=== PATIENT | male | born 1995 | race Caucasian/White ===

== ENCOUNTER 2018-01-25 04:45 | Inpatient (IN) ==
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
[2018-01-25 06:33] LABS: Baso # (Auto) 0.1 th/mm3 (0.0-0.2); Baso % (Auto) 0.8 % (0.0-2.0); Eos # (Auto) 0.3 th/mm3 (0.0-0.4); Eos % (Auto) 3.8 % (0.0-4.0); Hematocrit 43.5 % (39.0-51.0); Hemoglobin 15.8 gm/dL (13.0-17.0); Lymph # (Auto) 1.9 th/mm3 (1.0-4.8); Lymph % (Auto) 21.6 % (9.0-44.0); Mean Corpuscular Volume 85.2 fL (80.0-100.0); Mean Platelet Volume 6.8 fL (7.0-11.0); Mono # (Auto) 0.9 th/mm3 (0.0-0.9); Mono % (Auto) 10.4 % (0.0-8.0); Neut # (Auto) 5.6 th/mm3 (1.8-7.7); Neut % (Auto) 63.4 % (16.0-70.0); Platelet Count 354 th/mm3 (150-450); Red Blood Count 5.11 mil/mm3 (4.50-5.90); Red Cell Distribution Width 12.4 % (11.6-17.2); White Blood Count 8.9 th/mm3 (4.0-11.0)
[2018-01-25 06:35] LABS: Mean Corpuscular HGB Conc 36.4 % (32.0-36.0)
[2018-01-25 06:59] LABS: Alanine Aminotransferase 15 U/L (9-52); Albumin 4.6 g/dL (3.4-5.0); Anion Gap 15 meq/L (5-15); Aspartate Aminotransferase 7 U/L (15-39); Blood Urea Nitrogen 30 mg/dL (7-18); Calcium 9.3 mg/dL (8.5-10.1); Carbon Dioxide 23.5 meq/L (21.0-32.0); Chloride 105 meq/L (98-107); Glomerular Filtration Rate 71 mL/min (>89); Glucose,Random 96 mg/dL (74-106); Potassium 3.3 meq/L (3.5-5.1); Sodium 143 meq/L (136-145)
[2018-01-25 07:10] LABS: Alkaline Phosphatase 84 U/L (45-117); Total Protein 8.1 g/dL (6.4-8.2)
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
[2018-01-25] MEDS ORDERED: Aluminum/Magnesium/Simethacone Susp 30 ML UDC PO PRN (14:15)
[2018-01-25 16:09] LABS: Amphetamine Screen,Urine Pos (Neg); Barbiturate Screen,Urine Neg (Neg); Cannabinoid Screen,Urine Pos (Neg); Cocaine Screen,Urine Neg (Neg)
[2018-01-25 16:11] LABS: Opiate Screen,Urine Neg (Neg)
[2018-01-25] MEDS: Senna/Docusate Sodium 8.6/50 MG Tablet PO SCH (21:11)
[2018-01-26] MEDS: Senna/Docusate Sodium 8.6/50 MG Tablet PO SCH ×2 (08:33→21:01)
[2018-01-26 08:45] LABS: Potassium 4.2 meq/L (3.5-5.1)
[2018-01-26 08:50] LABS: Chol/HDL Ratio 4.19 Ratio; HDL Cholesterol 33.6 mg/dL (40.0-60.0)
--- NOTE | 2018-01-26 09:50 | P.TTN ---
- Patient Problems Problems: 1. Discharge planning 2. Medication compliance 3. Knowledge deficit 4. Lack of coping skills - Progress Toward Goals Provider Present: Dr. Gil Esquivel Provider Input: new today will be seen for HandP Nurse(s) Present: Manda: he is a BA for wandering in streets and responding to internal Nurse Input: responded to internally stimulated. he is unsure about substances but somewhat admitted to using something. he is paranoid , he tried Risperdal in past and did not like Psychiatric Counselors Present: Emely Gracia LCSW Psychiatric Therapist Input: in BA states he shared he has been DX with Schizophrenia, he will be seen for a bio assessment today Group Spec/RT/OT/RANGEL Input: new to groups today - Documentation Teaching Recipient: Patient
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
[2018-01-26] MEDS: Acetaminophen 325 MG Tablet PO PRN (11:52)
--- NOTE | 2018-01-26 15:33 | P.DIET ---
Nutritional Evaluation Type of nutrition evaluation: initial Nutrition screening: Weight Loss > 10 lbs (He states this is from being homeless ) Objective - Diagnosis Schizophrenia - Objective % IBW: 75 (TVP=982#) Body Weight Used for Calculations: IBW (67.3kg) Energy Needs - Lower Range (kCal/kg): 30 Energy Needs - Upper Range (kCal/kg): 35 Lower Limit kCal/kg (kCals): 2,019 Upper Limit kCal/kg (kCals): 2,356 Lower Limit Protein Factor (Grams per Kg): 1.1 Upper Limit Protein Factor (Grams per Kg): 1.4 Lower Protein Needs (Protein): 74 Upper Protein Needs (Protein): 94 Dietitian Reviewed in Medical Record: Current diet, Curent medications, Intake & Output, Labs, Medical history Diet Order: Regular Oral Diet Intake Amount: Excellent 90%+ Assessment Assessment: Pt admitted to inpatient psych for schizophrenia. Pt is at 75% of his IBW, current BMI is 17.3. States he has been homeless for a few weeks and this is why he's been losing weight. He is on a Regular diet, which is appropriate. I will add Enlive TID for increased calories for hopefully wt gain. He is eating well currently, but will benefit from the oral nutritional supplements for wt/ muscle gain. Dietitian following along. Recommendations: 1. Enlive TID. 2. Continue Regular diet. Dietitian to Monitor: Lab values, Supplement acceptance, Intake & Output, Diet tolerance, Weight change, PO Intake, Medical course
[2018-01-26 16:01] LABS: Hemoglobin A1c 5.3 % (4.3-6.0)
[2018-01-27] MEDS: Senna/Docusate Sodium 8.6/50 MG Tablet PO SCH ×2 (08:35→21:55)
--- NOTE | 2018-01-27 16:22 | P.PNPSY ---
Subjective Remarks: Patient seen for follow up, chart reviewed. Discussion nursing staff reported patient mostly in bed, only out for meals, showered, mother reported wanting patient to go to rehab. Patient was found lying on hospital bed, superficially cooperative, states feeling "tired", reports having a headache, sleeping well, eating and drinking well, reports having some nausea but denying any vomiting or diarrhea nor any abdominal pain. Patient states that his auditory hallucinations are "worse", refused to elaborate. Review of Systems All other systems reviewed negative except as stated in HPI Mental Status Examination Appearance: Disheveled Consciousness: Somnolent (Slightly) Motor Activity: Other (No observed abnormal movements or motor activity) Speech: Slow, Other (Elevated at times) Language: Adequate Fund of Knowledge: Poor Attention and Concentration: Inadequate Memory: Impaired Mood: Irritable Affect: Irritable Thought Process & Associations: Linear, Other ([place]) Thought Content: Hallucinations (Command auditory hallucinations to hurt other people) Hallucination Type: Auditory Delusion Type: Paranoid Suicidal Ideation: No Suicidal Plan: No Suicidal Intention: No Homicidal Ideation: No Homicidal Plan: No Homicidal Intention: No Insight: Poor Judgment: Poor Assessment and Plan - Assessment (1) Unspecified psychosis Code(s): F29 - Unspecified psychosis not due to a substance or known physiological condition Status: Acute - Plan Plan: Patient at this time noted with continued irritability, seclusive, improved hygiene, continues with auditory hallucinations. Increase olanzapine to 5mg a.m. /10mg HS for psychosis. Continue to monitor mood and behavior. Discharge planning in progress. Justification for Continued Inpatient Stay: At risk for further decompensation at lower level of care.
[2018-01-27] MEDS: Acetaminophen 325 MG Tablet PO PRN (16:52)
[2018-01-27] MEDS: OLANZapine 10 MG ODT Tablet PO SCH (21:55)
[2018-01-28] MEDS: Senna/Docusate Sodium 8.6/50 MG Tablet PO SCH ×2 (09:16→21:43)
[2018-01-28] MEDS ORDERED: OLANZapine 10 MG ODT Tablet PO SCH (16:32)
--- NOTE | 2018-01-28 16:46 | P.PNPSY ---
Subjective Remarks: Patient seen for follow up, chart reviewed. Discussion nursing staff reported patient seclusive, no behavioral issues, continues with suicidal ideation and auditory hallucinations. Patient found lying hospital bed noted to be superficially cooperative and irritable at times stating he is feeling "okay" states that he is feeling "tired" feeling okay, reports sleeping well, states he attended some groups yesterday, reports having less suicidal ideations and decreasing auditory hallucinations with a clear to be present. Patient had to be prompted to engage in interview as he was mostly laying down with poor eye contact. When discussing discharge planning upon stabilization patient was not able to engage in adequate participation in this. Review of Systems All other systems reviewed negative except as stated in HPI Mental Status Examination Appearance: Disheveled Consciousness: Somnolent (Slightly) Motor Activity: Other (No observed abnormal movements or motor activity) Speech: Slow, Other (Elevated at times) Language: Adequate Fund of Knowledge: Poor Attention and Concentration: Inadequate Memory: Impaired Mood: Irritable Affect: Irritable Thought Process & Associations: Linear, Other ([place]) Thought Content: Hallucinations (Command auditory hallucinations to hurt other people) Hallucination Type: Auditory Delusion Type: Paranoid Suicidal Ideation: No Suicidal Plan: No Suicidal Intention: No Homicidal Ideation: No Homicidal Plan: No Homicidal Intention: No Insight: Poor Judgment: Poor Assessment and Plan - Assessment (1) Unspecified psychosis Code(s): F29 - Unspecified psychosis not due to a substance or known physiological condition Status: Acute - Plan Plan: Patient is noted to have improved hygiene and he is in showering, attending some groups and out for meals continues to have poor motivation, endorse continued suicidal ideation which she states are decreasing along with auditory hallucinations as well. We will continue to titrate olanzapine to 10 mg p.o. for psychosis and mood stabilization. We will continue to monitor mood and behavior. Discharge planning in progress. Justification for Continued Inpatient Stay: At risk of further decompensation a lower level care.
[2018-01-28] MEDS: Acetaminophen 325 MG Tablet PO PRN (18:22)
[2018-01-28] MEDS: OLANZapine 10 MG ODT Tablet PO SCH (21:44)
[2018-01-29] MEDS: OLANZapine 10 MG ODT Tablet PO SCH ×2 (09:07→21:08)
[2018-01-29] MEDS: Senna/Docusate Sodium 8.6/50 MG Tablet PO SCH ×2 (09:07→21:08)
--- NOTE | 2018-01-29 16:27 | P.PNPSY ---
Subjective Remarks: Patient seen for follow, chart reviewed. Discussion nursing staff reported patient continues to very poor eye contact with staff, has a compliant medications, stating wanting to go to [place] upon discharge. Patient was found lying hospital bed asleep was woken up several times to participate in interview. Patient state he is feeling tired states that he has difficulty with sleep. He reports adequate appetite has been out for meals and states having attended some groups. Patient denies any perceptional services at this time denying suicide ideation. Discussion about patient being transferred to a sober living facility in [place] as arranged by mother was reviewed which he agreed. Review of Systems All other systems reviewed negative except as stated in HPI Mental Status Examination Appearance: Disheveled Consciousness: Somnolent Motor Activity: Other (No observed abnormal movements or motor activity) Speech: Slow Language: Adequate Fund of Knowledge: Poor Attention and Concentration: Inadequate Memory: Impaired Mood: Irritable Affect: Blunt Thought Process & Associations: Linear, Other ([place]) Thought Content: Preoccupations (with discharge place) Hallucination Type: None Delusion Type: Paranoid Suicidal Ideation: No Suicidal Plan: No Suicidal Intention: No Homicidal Ideation: No Homicidal Plan: No Homicidal Intention: No Insight: Poor Judgment: Poor Assessment and Plan - Assessment (1) Unspecified psychosis Code(s): F29 - Unspecified psychosis not due to a substance or known physiological condition Status: Acute - Plan Plan: Patient this time continues with poor motivation, requiring prompting by staff, marginal hygiene although reports attending some groups. Patient denying any perceptional disturbances or suicide ideations at this time. Patient to continue current treatment. We will continue to monitor mood and behavior. Patient likely discharge Thursday to sober living facility patient continues to improve over the weekend. Discharge planning a progress. Justification for Continued Inpatient Stay: At risk of further decompensation a lower level care.
[2018-01-30] MEDS: Senna/Docusate Sodium 8.6/50 MG Tablet PO SCH ×2 (09:51→20:05)
[2018-01-30] MEDS: OLANZapine 10 MG ODT Tablet PO SCH ×2 (09:51→20:05)
--- NOTE | 2018-01-30 15:24 | P.PNPSY ---
Subjective Remarks: Reviewed electronic medical records and discussed case with staff. Follow-up was conducted in the patient's room with ACOSTA Alas present. Patient found sleeping in bed. Wakes to verbal stimuli. States that he is tired although he has been sleeping well. He attributes this to his medication. States his appetite's been good. Denies any other side effects. Denies any perceptual disturbances. Mental Status Examination Appearance: Disheveled Consciousness: Somnolent Motor Activity: Other (No observed abnormal movements or motor activity) Speech: Slow Language: Adequate Fund of Knowledge: Poor Attention and Concentration: Inadequate Memory: Impaired Mood: Irritable Affect: Blunt Thought Process & Associations: Linear, Other ([place]) Thought Content: Preoccupations (with discharge place) Hallucination Type: None Delusion Type: Paranoid Suicidal Ideation: No Suicidal Plan: No Suicidal Intention: No Homicidal Ideation: No Homicidal Plan: No Homicidal Intention: No Insight: Poor Judgment: Poor Assessment and Plan - Assessment (1) Schizophrenia Code(s): F20.9 - Schizophrenia, unspecified Status: Acute - Plan Plan: Patient will be reevaluated Thursday by the attending psychiatrist. Continue with current treatment plan. Justification for Continued Inpatient Stay: Moving this patient to a less restrictive environment would likely result in decompensation.
[2018-01-31] MEDS: OLANZapine 10 MG ODT Tablet PO SCH ×2 (09:11→20:18)
[2018-01-31] MEDS: Senna/Docusate Sodium 8.6/50 MG Tablet PO SCH ×2 (09:11→20:18)
--- NOTE | 2018-01-31 13:38 | P.PNPSY ---
Subjective Chief Complaint: Schizophrenia Remarks: Reviewed electronic medical records and discussed case with staff. Follow-up was conducted in the consult room with ACOSTA Alas. Patient is very shy. He states that he feels better and the medications have helped him manage the voices. He is sleeping well. Participating in group activities. He states that the plan is for him to go to [facility] for Rehab. He does not have a good relationship with his parents who live in [place]. He expresses that once out of rehab he does not a stable housing situation. Patient is cooperative. Review of Systems All other systems reviewed negative except as stated in HPI Mental Status Examination Appearance: Appropriate Consciousness: Alert Orientation: x4 Motor Activity: Normal gait Speech: Unremarkable Language: Adequate Fund of Knowledge: Inadequate Attention and Concentration: Easily distracted Memory: Impaired Mood: Appropriate Affect: Euthymic Thought Process & Associations: Linear, Other ([place]) Thought Content: Preoccupations (with discharge place) Hallucination Type: None Delusion Type: Paranoid Suicidal Ideation: No Suicidal Plan: No Suicidal Intention: No Homicidal Ideation: No Homicidal Plan: No Homicidal Intention: No Insight: Fair Judgment: Impulsive Assessment and Plan - Assessment (1) Schizophrenia Code(s): F20.9 - Schizophrenia, unspecified Status: Acute - Plan Plan: Patient will be reevaluated Thursday by the attending psychiatrist. Continue with current treatment plan. Justification for Continued Inpatient Stay: Moving patient to a less restrictive environment may result in his decompensation.
[2018-01-31] MEDS: Acetaminophen 325 MG Tablet PO PRN (20:30)
[2018-02-01] MEDS: Senna/Docusate Sodium 8.6/50 MG Tablet PO SCH ×2 (09:23→20:22)
[2018-02-01] MEDS: OLANZapine 10 MG ODT Tablet PO SCH ×2 (09:23→20:22)
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
--- NOTE | 2018-02-01 19:49 | P.PNPSY ---
Subjective Chief Complaint: Schizophrenia Remarks: Patient seen for follow, chart reviewed. Discussion with nursing staff reported the patient more visible on the unit, stating feeling ready to go to rehabilitation program. Patient was found heavily on unit disputing groups and activities. Noted to have good affect noted to be, cooperative. Patient states that his weekend went "alright" stating he is looking forward to engaging in rehabilitation program as he no longer wants to be surrounded around individuals that continue substance use. He states having been attending more groups, feeling physically better. Patient denies any perceptional services, denies any suicidal homicidal ideations at this time. Review of Systems All other systems reviewed negative except as stated in HPI Mental Status Examination Appearance: Appropriate Consciousness: Alert Orientation: x4 Motor Activity: Normal gait Speech: Unremarkable Language: Adequate Fund of Knowledge: Inadequate Attention and Concentration: Adequate Memory: Impaired Mood: Appropriate Affect: Euthymic Thought Process & Associations: Intact, Goal directed, Linear Thought Content: Appropriate Hallucination Type: None Delusion Type: None Suicidal Ideation: No Suicidal Plan: No Suicidal Intention: No Homicidal Ideation: No Homicidal Plan: No Homicidal Intention: No Insight: Fair Judgment: Impulsive Assessment and Plan - Assessment (1) Unspecified psychosis Code(s): F29 - Unspecified psychosis not due to a substance or known physiological condition Status: Acute - Plan Plan: Patient this time noted with improvement in mood and behavior noted with good affect, appropriate engagement in interview and good eye contact. Patient denying any perceptional services or delusions denying any suicidal homicidal ideations. Patient scheduled for discharge tomorrow morning to [facility] to a sober living facility. We will continue to monitor mood and behavior. Discharge planning in progress. Justification for Continued Inpatient Stay: At risk of further decompensation a lower level care.
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
== END 2018-02-02 06:05 | disposition home or self-care (01) ==
LOC: NEPD 04:45 → NEDA 14:14 → H260 16:27
PROVIDERS: ADMIT Student in an Organized Health Care Education/Training Program; ATTEND Student in an Organized Health Care Education/Training Program